=== PATIENT | female | born 1960 | race Caucasian/White ===

== ENCOUNTER 2017-02-03 03:18 | Emergency (ER) | payer BC ==
[2017-02-03 03:55] LABS: ABSOLUTE EOSINOPHILS # (AUTO) 0.1 10^3/uL (0.0-0.6); ABSOLUTE LYMPHOCYTES (AUTO) 1.6 10^3/uL (0.5-4.7); ABSOLUTE MONOCYTES (AUTO) 0.7 10^3/uL (0.1-1.4); ABSOLUTE NEUT (AUTO) 3.9 10^3/uL (1.7-8.2); BASOPHILS % (AUTO) 0.3 % (0-2); EOSINOPHILS % (AUTO) 2.2 % (0-6); HEMATOCRIT 43.1 % (36.0-47.0); HEMOGLOBIN 14.3 g/dL (12.0-15.5); HGB HCT DIFFERENCE -0.2; LYMPHOCYTES % (AUTO) 25.2 % (13-45); MEAN CORPUSCULAR HEMOGLOBIN 31.6 pg (27.0-33.4); MEAN CORPUSCULAR HGB CONC 33.2 g/dL (32.0-36.0); MEAN CORPUSCULAR VOLUME 95 fl (80-97); MONOCYTES % (AUTO) 10.6 % (3-13); RED BLOOD COUNT 4.54 10^6/uL (3.72-5.28); RED CELL DISTRIBUTION WIDTH 12.2 % (11.5-14.0); SEGMENTED NEUTROPHILS % (AUTO) 61.7 % (42-78); WHITE BLOOD COUNT 6.2 10^3/uL (4.0-10.5)
[2017-02-03 04:07] LABS: ALANINE AMINOTRANSFERASE 19 U/L (9-52); ALBUMIN 4.5 g/dL (3.5-5.0); ALKALINE PHOSPHATASE 80 U/L (38-126); ANION GAP 14 (5-19); ASPARTATE AMINO TRANSFERASE 16 U/L (14-36); BILIRUBIN,DIRECT 0.2 mg/dL (0.0-0.4); BILIRUBIN,TOTAL 0.5 mg/dL (0.2-1.3); BLOOD UREA NITROGEN 9 mg/dL (7-20); CALCIUM 9.6 mg/dL (8.4-10.2); CARBON DIOXIDE 25 mmol/L (22-30); CHLORIDE 103 mmol/L (98-107); CREATININE RESULT 0.57 mg/dL (0.52-1.25); GLUCOSE 113 mg/dL (75-110); TOTAL PROTEIN 7.7 g/dL (6.3-8.2)
[2017-02-03 04:57] LABS: APPEARANCE,URINE CLEAR; BILIRUBIN,URINE NEGATIVE (NEGATIVE); GLUCOSE, URINE NEGATIVE (NEGATIVE); KETONES,URINE NEGATIVE (NEGATIVE); LEUKOCYTE ESTERASE,URINE TRACE (NEGATIVE); NITRITE,URINE NEGATIVE (NEGATIVE); PROTEIN,URINE NEGATIVE (NEGATIVE); URINE SPECIFIC GRAVITY 1.019; UROBILINOGEN,URINE NEGATIVE mg/dL (<2.0)
[2017-02-03] MEDS ORDERED: NORMAL SALINE 1000 ML 1,000 ML IV ONE (08:10)
[2017-02-03] MEDS ORDERED: LIDOCAINE 2% VISCOUS SOLN 20 ML UDCUP PO ONE (08:10)
[2017-02-03] MEDS ORDERED: DIPHENHYDRAMINE HCL 50 MG/ML VIAL IV ONE (08:10)
[2017-02-03] MEDS ORDERED: MAG HYDROX/AL HYDROX/SIMETH SUSP 30 ML UDCUP PO ONE (08:10)
[2017-02-03 08:16] LABS: ADD ON TESTING BLD IN LAB ACKNOWLEDGE
[2017-02-03 08:35] LABS: LIPASE 60.1 U/L (23-300)
--- NOTE | 2017-02-03 10:45 | ER Document Report ---
ED GI/ - General Chief Complaint: Diarrhea Stated Complaint: DIARRHEA,ABDOMINAL PAIN Mode of Arrival: Ambulatory Information source: Patient Notes: Patient presents a one-week history of nausea with diarrhea. Patient states typically she's been having 6 diarrhea bowel movements a day. Patient denies any fever or blood in her stool. Patient does state that she takes methadone daily for chronic pain due to neuropathy. Patient states that she is prescribed methadone 5 mg 3 times a day but only takes a dose once a day. TRAVEL OUTSIDE OF THE [place] IN LAST 30 DAYS: No - HPI Patient complains to provider of: Abdominal pain, Diarrhea. No: Dysuria, Vaginal discharge, Vomiting Onset: Last week Timing/Duration: Persistent Quality of pain: Cramping Pain Level: 3 Location: Epigastric Vaginal bleeding (Compared to normal period): None Associated symptoms: Diarrhea, Nausea. denies: Blood in stool, Dizzy, Dysuria, Fever Exacerbated by: Denies Relieved by: Denies Similar symptoms previously: No Recently seen / treated by doctor: No - Related Data Allergies/Adverse Reactions: aspirin [Aspirin] Allergy (Intermediate, Verified 02/03/17 03:26) heart racing, head hurt,face turned red ondansetron HCl [From Zofran] Allergy (Intermediate, Verified 02/03/17 03:26) VOMITING Penicillins Allergy (Mild, Verified 02/03/17 03:26) rash adhesive [Adhesive] Adverse Reaction (Intermediate, Verified 02/03/17 03:26) swelling Past Medical History - General Information source: Patient - Social History Smoking Status: Former Smoker Frequency of alcohol use: None Drug Abuse: None Occupation: none Lives with: Spouse/Significant other Family History: Reviewed & Not Pertinent - Past Medical History Cardiac Medical History: Denies: Hx Coronary Artery Disease, Hx Heart Attack, Hx Hypertension Pulmonary Medical History: Denies: Hx Asthma, Hx Bronchitis, Hx COPD, Hx Pneumonia Neurological Medical History: Denies: Hx Cerebrovascular Accident, Hx Seizures Renal/ Medical History: Denies: Hx Peritoneal Dialysis Malignancy Medical History: Reports: Hx Breast Cancer - Treated with chemotherapy and radiation. GI Medical History: Reports: Hx Gastroesophageal Reflux Disease, Other - Gastroparesis Musculoskeltal Medical History: Reports Hx Arthritis - HANDS Past Surgical History: Reports: Hx Breast Surgery - left side lumpectomy, Hx Cholecystectomy, Hx Hysterectomy - PARTIAL, Hx Mastectomy - left, Hx Thyroid Surgery - 2009 - Immunizations Hx Diphtheria, Pertussis, Tetanus Vaccination: No Review of Systems - Review of Systems Constitutional: No symptoms reported. denies: Fever, Recent illness EENT: No symptoms reported Cardiovascular: No symptoms reported. denies: Chest pain Respiratory: No symptoms reported. denies: Cough, Short of breath Gastrointestinal: Abdominal pain, Diarrhea, Poor appetite, Poor fluid intake. denies: Vomiting, Black stools, Rectal bleeding Genitourinary: No symptoms reported. denies: Dysuria, Flank pain Female Genitourinary: No symptoms reported Musculoskeletal: No symptoms reported Skin: No symptoms reported Hematologic/Lymphatic: No symptoms reported Neurological/Psychological: No symptoms reported Physical Exam - Vital signs Vitals: Temp Pulse Resp BP Pulse Ox 97.9 F 98 16 124/73 98 02/03/17 03:26 02/03/17 03:26 02/03/17 03:26 02/03/17 03:26 02/03/17 03:26 - General General appearance: Appears well, Alert In distress: None - HEENT Head: Normocephalic, Atraumatic Eyes: Normal Nasal: Normal Mouth/Lips: Normal Mucous membranes: Normal Pharynx: Normal Neck: Normal - Respiratory Respiratory status: No respiratory distress Chest status: Nontender Breath sounds: Normal. No: Rales, Rhonchi, Stridor, Wheezing Chest palpation: Normal - Cardiovascular Rhythm: Regular Heart sounds: S1 appreciated, S2 appreciated Murmur: No - Abdominal Inspection: Normal Distension: No distension Bowel sounds: Normal Tenderness: Tender - Epigastric Organomegaly: No organomegaly - Back Back: Normal, Nontender. No: CVA tenderness - Extremities General upper extremity: Normal inspection, Normal strength General lower extremity: Normal inspection, Normal strength - Neurological Neuro grossly intact: Yes Cognition: Normal Jarratt Coma Scale Eye Opening: Spontaneous [place]att Coma Scale Verbal: Oriented Erika Coma Scale Motor: Obeys Commands Erika Coma Scale Total: 15 - Skin Skin Temperature: Warm Skin Moisture: Dry Skin Color: Normal Course - Re-evaluation Re-evalutation: 02/03/17 09:30 Patient reports improvement of pain symptoms after GI cocktail. 02/03/17 10:41 Discussed results with patient. Patient advised to take her usual medications at home as prescribed. Patient states she has lidocaine at home that she is supposed to take occasionally for upper abdominal tenderness. Patient advised to return with stool specimen when she has diarrhea again so that we can perform outpatient testing. Discussed worsening signs or symptoms that patient should [facility]. Patient encouraged to follow-up with her primary doctor tomorrow as well as a vocational psychologist. Patient states she has previously seen Dr. Celis, but states that he told her that he couldn't do anything else for her. Patient additionally reports that she has seen Dr. Mancilla the past. - Vital Signs Vital signs: Temp Pulse Resp BP Pulse Ox 97.9 F 76 16 125/72 97 02/03/17 10:58 02/03/17 10:58 02/03/17 10:58 02/03/17 10:58 02/03/17 10:58 - Laboratory Result Diagrams: 02/03/17 03:45 02/03/17 03:45 Laboratory results interpreted by me: 02/03/17 02/03/17 03:45 04:35 Glucose 113 H Ur Leukocyte Esterase TRACE H Urine Ascorbic Acid 40 H 02/03/17 10:43 Labs- Entire Visit 02/03/17 02/03/17 02/03/17 03:45 03:45 03:45 WBC 6.2 RBC 4.54 Hgb 14.3 Hct 43.1 MCV 95 MCH 31.6 MCHC 33.2 RDW 12.2 Plt Count 216 Seg Neutrophils % 61.7 Lymphocytes % 25.2 Monocytes % 10.6 Eosinophils % 2.2 Basophils % 0.3 Absolute Neutrophils 3.9 Absolute Lymphocytes 1.6 Absolute Monocytes 0.7 Absolute Eosinophils 0.1 Absolute Basophils 0.0 Sodium 142.0 Potassium 4.0 Chloride 103 Carbon Dioxide 25 Anion Gap 14 BUN 9 Creatinine 0.57 Est GFR ( Amer) > 60 Est GFR (Non-Af Amer) > 60 Glucose 113 H Calcium 9.6 Total Bilirubin 0.5 Direct Bilirubin 0.2 Indirect Bilirubin Not Reportable Neonat Total Bilirubin Not Reportable AST 16 ALT 19 Alkaline Phosphatase 80 Total Protein 7.7 Albumin 4.5 Lipase 60.1 Urine Color Urine Appearance Urine pH Ur Specific [place] Urine Protein Urine Glucose (UA) Urine Ketones Urine Blood Urine Nitrite Urine Bilirubin Urine Urobilinogen Ur Leukocyte Esterase Urine WBC (Auto) Urine RBC (Auto) U Hyaline Cast (Auto) Squamous Epi Cells Auto Urine Mucus (Auto) Urine Ascorbic Acid 02/03/17 04:35 WBC RBC Hgb Hct MCV MCH MCHC RDW Plt Count Seg Neutrophils % Lymphocytes % Monocytes % Eosinophils % Basophils % Absolute Neutrophils Absolute Lymphocytes Absolute Monocytes Absolute Eosinophils Absolute Basophils Sodium Potassium Chloride Carbon Dioxide Anion Gap BUN Creatinine Est GFR ( Amer) Est GFR (Non-Af Amer) Glucose Calcium Total Bilirubin Direct Bilirubin Indirect Bilirubin Neonat Total Bilirubin AST ALT Alkaline Phosphatase Total Protein Albumin Lipase Urine Color YELLOW Urine Appearance CLEAR Urine pH 5.0 Ur Specific [place] 1.019 Urine Protein NEGATIVE Urine Glucose (UA) NEGATIVE Urine Ketones NEGATIVE Urine Blood NEGATIVE Urine Nitrite NEGATIVE Urine Bilirubin NEGATIVE Urine Urobilinogen NEGATIVE Ur Leukocyte Esterase TRACE H Urine WBC (Auto) 1 Urine RBC (Auto) 1 U Hyaline Cast (Auto) 1 Squamous Epi Cells Auto <1 Urine Mucus (Auto) RARE Urine Ascorbic Acid 40 H 02/03/17 11:51 Discharge - Discharge Clinical Impression: Nausea Diarrhea Qualifiers: Diarrhea type: unspecified type Qualified Code(s): R19.7 - Diarrhea, unspecified Disposition: HOME, SELF-CARE Instructions: Nausea or Vomiting, Nonspecific ([facility]), Diarrhea, Nonspecific ([facility] ), Reflux Disease (GERD) ([facility]) Additional Instructions: Return immediately for any new or worsening symptoms Followup with your primary care provider, call tomorrow to make a followup appointment Take her nausea medication that you have at home as prescribed May take your lidocaine that you have at home as prescribed Obtain stool specimen and bring to lab for further testing. We will call if you need any different treatment Prescriptions: Sucralfate [Carafate 1 gm Tablet] 1 gm PO ACHS #40 tablet Forms: Follow-Up Laboratory Testing Referrals: ABDIFATAH BANGURA MD [Primary Care Provider] - Follow up tomorrow GREG CLEMENS MD [EMERITUS] - Follow up tomorrow
[2017-02-03 11:08] VITALS: BP 125/72
== END 2017-02-03 11:09 | disposition home or self-care (01) ==
LOC: ER 03:18
DX: R11.0 Nausea (principal); R19.7 Diarrhea, unspecified; G89.29 Other chronic pain; Z79.899 Other long term (current) drug therapy; Z87.891 Personal history of nicotine dependence
CPT/HCPCS: 99284; 96361; 96374; 36415; 83690; 85025; 80053; 81001; J1200; J3490; J7030

== ENCOUNTER → 2017-02-20 | Outpatient (CLI) | payer BC | LOC: RAD 11:47 | PROVIDERS: ATTEND Obstetrics & Gynecology | DX: Z85.3 Personal history of malignant neoplasm of breast (principal) | CPT/HCPCS: G0279; G0204; 77062; 77066 ==

== ENCOUNTER → 2017-06-27 | Outpatient (CLI) | payer BC ==
--- NOTE | 2017-06-27 16:47 | RADIOLOGY REPORT (SQ) ---
EXAM DESCRIPTION: CHEST PA/LATERAL COMPLETED DATE/TIME: 06/27/2017 3:35 pm REASON FOR STUDY: S/P BREAST CANCER; LEFT SIDE CHEST PAIN COMPARISON: Two-view chest 02/27/2016 CT angio chest 10/07/2014 EXAM PARAMETERS: NUMBER OF VIEWS: two views TECHNIQUE: Digital Frontal and Lateral radiographic views of the chest acquired. RADIATION DOSE: NA LIMITATIONS: none FINDINGS: LUNGS AND PLEURA: No opacities, masses or pneumothorax. No pleural effusion. MEDIASTINUM AND HILAR STRUCTURES: No masses or contour abnormalities. HEART AND VASCULAR STRUCTURES: Heart normal size. No evidence for failure. BONES: Bones are osteoporotic. No fracture. HARDWARE: Surgical clips left axilla. Clips right upper quadrant post cholecystectomy OTHER: No other significant finding. IMPRESSION: Postsurgical changes left axilla. No left rib fractures or lytic or blastic lesions ove r the left bony chest. TECHNICAL DOCUMENTATION: JOB ID: [id number] [employer] All Rights Reserved
--- NOTE | 2017-06-27 16:49 | RADIOLOGY REPORT (SQ) ---
EXAM DESCRIPTION: RIBS LEFT W/O PA CHEST COMPLETED DATE/TIME: 06/27/2017 3:35 pm REASON FOR STUDY: S/P BREAST CANCER; LEFT SIDE CHEST PAIN R07.9 CHEST PAIN, UNSPECIFIED COMPARISON: Two-view chest same date, CT chest 03/16/2016 NUMBER OF VIEWS: Left rib detail four views TECHNIQUE: Images acquired of the left ribs in the area of focal concern. LIMITATIONS: None. FINDINGS: RIBS: No acute displaced fracture. No lytic or blastic lesions. LUNGS: Left lung well inflated and clear. No left pleural effusion or pneumothorax. OTHER: Post surgery in the left upper outer quadrant breast without surgical clips present in the far upper outer quadrant and left axilla. IMPRESSION: NO ACUTE DISPLACED RIB FRACTURE. No left rib lytic or blastic lesions identified on plain film. COMMENT: SITE OF TRAUMA/COMPLAINT MARKED/STAMP COMPLETED: Yes TECHNICAL DOCUMENTATION: JOB ID: [id number] [employer]- All Rights Reserved
== END ==
LOC: OD 14:42
PROVIDERS: ATTEND Obstetrics & Gynecology
DX: R07.9 Chest pain, unspecified (principal); Z85.3 Personal history of malignant neoplasm of breast
CPT/HCPCS: 71020

== ENCOUNTER 2019-04-21 15:32 | Day surgery (SDC) | payer BC ==
[2019-04-21] MEDS ORDERED: DIPHENHYDRAMINE HCL 50 MG/ML VIAL ONE (16:08)
[2019-04-21] MEDS: PROMETHAZINE HCL INJ 25 MG/1 ML VIAL ONE ×2 (16:08→18:08)
[2019-04-21] MEDS ORDERED: ONDANSETRON HCL INJ/PF 4 MG/2 ML SDV ONE (16:08)
[2019-04-21] MEDS ORDERED: FENTANYL CITRATE INJ/PF 100 MCG/2 ML AMPUL ONE (16:08)
[2019-04-21] MEDS ORDERED: NALOXONE HCL INJ/PF 0.4 MG/1 ML SDV ONE (16:09)
[2019-04-21] MEDS ORDERED: GLUCAGON,HUMAN RECOMB 1 MG INJ ONE (16:09)
[2019-04-21] MEDS ORDERED: FLUMAZENIL INJ 0.5 MG/5 ML VIAL ONE (16:09)
[2019-04-21] MEDS ORDERED: EPINEPHRINE INJ 1 MG/10 ML DISP.SYRIN ONE (16:09)
[2019-04-21] MEDS ORDERED: ONABOTULINUMTOXINA INJ/PF 100 UNIT SDV IJ ONE (18:00)
[2019-04-21] MEDS: MIDAZOLAM 2 MG/2 ML INJ ONE ×2 (18:13→18:30)
--- NOTE | 2019-04-21 18:44 | Operative Report ---
Operative Report DATE OF SURGERY: 04/21/19 Operative Report: Pre-op diagnosis: History of dysphagia and tight GE junction from fundoplication Post-op diagnosis: Mild GE junction stenosis Surgery: Esophagogastroduodenoscopy with Botox injection and balloon dilation Medications: Versed 3mg Fentanyl 100mcg IV push Tissue removed: None Procedure: After informed consent obtained from patient, the throat was sprayed with Hurricane and conscious sedation was achieved. The upper endoscope was inserted into the esophagus under direct vision and advanced into the stomach. The duodenum was entered and examined to the second part. Endoscope was then slowly pulled out of the patient as the mucosa was examined into details. Patient tolerated procedure well. Findings Esophagus: There was mild stenosis at the GE junction with evidence for previous fundoplication. There was more significant tightness during the recent EGD. The GE junction was injected with Botox and dilated with 20 mm balloon. Antrum: Normal Body: Normal Fundus: Normal Duodenum first part: Normal Duodenum second part: Normal Plan: Follow-up in the office OPERATION: .
[2019-04-21 19:53] VITALS: BP 118/80
== END 2019-04-21 19:57 | disposition home or self-care (01) ==
LOC: END 15:32
PROVIDERS: ATTEND Internal Medicine Gastroenterology
PROC: 0D748ZZ Dilation of Esophagogastric Junction, Via Natural or Artificial Opening Endoscopic (ICD-10-PCS; principal; 2019-04-21 16:00)
PROC: 3E0G8GC Introduction of Other Therapeutic Substance into Upper GI, Via Natural or Artificial Opening Endoscopic (ICD-10-PCS; 2019-04-21 16:00)
DX: K22.2 Esophageal obstruction (principal); R13.10 Dysphagia, unspecified
CPT/HCPCS: 43249; 43236; J2250; J3010; J2550; J0585; J0171; J1200; J1610; J2310; J2405; J3490

== ENCOUNTER 2020-08-16 23:26 | Emergency (ER) | payer BC ==
[2020-08-16] MEDS ORDERED: NORMAL SALINE 1000 ML 1,000 ML IV ONE (23:55)
[2020-08-16] MEDS ORDERED: METOCLOPRAMIDE HCL INJ/PF 10 MG/2 ML SDV IV ONE (23:55)
--- NOTE | 2020-08-16 23:57 | ER Document Report ---
ED Medical Screen (RME) - General Chief Complaint: Abdominal Pain Stated Complaint: ABDOMINAL PAIN Time Seen by Provider: 08/16/20 23:54 Primary Care Provider: NAE ROSAS MD [Primary Care Provider] - Follow up as needed Mode of Arrival: Ambulatory Information source: Patient Notes: 60-year-old female with a right lower quadrant pain and distention ear lier today. Vomiting present. History of nausea in the past. Takes Phenergan but today nausea and pain far worse than any time before. No fevers or chills. General: Uncomfortable appearance Abdominal: Right lower quadrant tenderness to palpation Respiratory: No acute distress Neurology: No focal deficits I have greeted and performed a rapid initial assessment of this patient. A comprehensive ED assessment and evaluation of the patient, analysis of test results and completion of the medical decision making process will be conducted by additional ED providers. TRAVEL OUTSIDE OF THE [place] IN LAST 30 DAYS: No - Related Data Allergies/Adverse Reactions: aspirin [Aspirin] Allergy (Intermediate, Verified 04/21/19 16:21) heart racing, head hurt,face turned red ondansetron HCl [From Zofran] Allergy (Intermediate, Verified 04/21/19 16:21) VOMITING Penicillins Allergy (Mild, Verified 04/21/19 16:21) rash adhesive [Adhesive] Adverse Reaction (Intermediate, Verified 04/21/19 16:21) swelling Past Medical History - Past Medical History Cardiac Medical History: Denies: Hx Coronary Artery Disease, Hx Heart Attack, Hx Hypertension Pulmonary Medical History: Denies: Hx Asthma, Hx Bronchitis, Hx COPD, Hx Pneumonia Neurological Medical History: Reports: Hx Seizures - NONE FOR ABOUT 3 YEARS. Denies: Hx Cerebrovascular Accident Renal/ Medical History: Denies: Hx Peritoneal Dialysis Malignancy Medical History: Reports: Hx Breast Cancer - Treated with chemotherapy and radiation. GI Medical History: Reports: Hx Gastroesophageal Reflux Disease Musculoskeltal Medical History: Reports Hx Arthritis - HANDS Past Surgical History: Reports: Hx Breast Surgery - left side lumpectomy, Hx Cholecystectomy, Hx Mastectomy - left, Hx Thyroid Surgery - 2009. Denies: Hx Hysterectomy - Immunizations Hx Diphtheria, Pertussis, Tetanus Vaccination: No Physical Exam - Vital signs Vitals: Temp Pulse Resp BP Pulse Ox 97.5 F 81 18 147/74 H 98 08/16/20 23:38 08/16/20 23:38 08/16/20 23:38 08/16/20 23:38 08/16/20 23:38 Course - Vital Signs Vital signs: Temp Pulse Resp BP Pulse Ox 97.5 F 81 18 147/74 H 98 08/16/20 23:38 08/16/20 23:38 08/16/20 23:38 08/16/20 23:38 08/16/20 23:38 Doctor's Discharge - Discharge Referrals: NAE ROSAS MD [Primary Care Provider] - Follow up as needed
[2020-08-17 01:26] LABS: ABSOLUTE LYMPHOCYTES (AUTO) 0.8 10^3/uL (0.5-4.7); ABSOLUTE MONOCYTES (AUTO) 0.8 10^3/uL (0.1-1.4); ABSOLUTE NEUT (AUTO) 10.9 10^3/uL (1.7-8.2); BASOPHILS % (AUTO) 0.3 % (0-2); EOSINOPHILS % (AUTO) 0.1 % (0-6); HEMATOCRIT 38.5 % (36.0-47.0); LYMPHOCYTES % (AUTO) 6.3 % (13-45); MEAN CORPUSCULAR HEMOGLOBIN 32.2 pg (27.0-33.4); MEAN CORPUSCULAR HGB CONC 33.7 g/dL (32.0-36.0); MEAN CORPUSCULAR VOLUME 95 fl (80-97); MONOCYTES % (AUTO) 6.2 % (3-13); PLATELET COUNT 204 10^3/uL (150-450); RED BLOOD COUNT 4.04 10^6/uL (3.72-5.28); RED CELL DISTRIBUTION WIDTH 11.9 % (11.5-14.0); SEGMENTED NEUTROPHILS % (AUTO) 87.1 % (42-78); TOTAL CELLS COUNTED % (AUTO) 100 %; WHITE BLOOD COUNT 12.5 10^3/uL (4.0-10.5)
[2020-08-17 01:45] LABS: ALBUMIN 4.7 g/dL (3.5-5.0); ALKALINE PHOSPHATASE 76 U/L (38-126); ANION GAP 10 (5-19); ASPARTATE AMINO TRANSFERASE 28 U/L (14-36); BILIRUBIN,DIRECT 0.2 mg/dL (0.0-0.4); BILIRUBIN,TOTAL 0.6 mg/dL (0.2-1.3); BLOOD UREA NITROGEN 11 mg/dL (7-20); CALCIUM 9.4 mg/dL (8.4-10.2); CARBON DIOXIDE 28 mmol/L (22-30); CHLORIDE 99 mmol/L (98-107); GLUCOSE 114 mg/dL (75-110); POTASSIUM 3.7 mmol/L (3.6-5.0); TOTAL PROTEIN 7.5 g/dL (6.3-8.2)
[2020-08-17 02:47] LABS: APPEARANCE,URINE SLIGHTLY-CLOUDY; BILIRUBIN,URINE NEGATIVE (NEGATIVE); CALCIUM OXALATE CRYSTALS,URINE MANY /HPF; GLUCOSE, URINE NEGATIVE (NEGATIVE); KETONES,URINE 20 mg/dL (NEGATIVE); PROTEIN,URINE NEGATIVE (NEGATIVE)
[2020-08-17 02:53] LABS: COLOR,URINE DARK YELLOW
--- NOTE | 2020-08-17 03:00 | RADIOLOGY REPORT (SQ) ---
CT ABDOMEN AND PELVIS WITH INTRAVENOUS CONTRAST: 08/17/2020 1:56 AM CDT HISTORY: 60-year old with right lower quadrant abdominal pain, nausea. COMPARISON: None available TECHNIQUE: Axial contiguous images were obtained from the lung bases to the proximal femurs with intravenous intravenous contrast administered. Sagittal and coronal reconstructions were also obtained and reviewed. This exam was performed according to our departmental dose-optimization program, which includes automated exposure control, adjustment of the mA and/or KV according to the patient's size and/or use of iterative reconstruction technique. FINDINGS: No focal consolidative airspace opacities are seen. No discrete pleural effusions are seen. The visualized hepatic parenchyma is unremarkable. No focal enhancing lesion is seen. The main portal vein appears to be patent. The gallbladder is surgically absent. There is mild prominence of the intra and extrahepatic ducts, likely due to postcholecystectomy changes. The spleen is normal in size. The pancreas is unremarkable. The bilateral adrenal glands appear unremarkable. Both kidneys demonstrate no evidence of hydronephrosis. No renal or ureteral calculi are seen. The urinary bladder is mildly distended, and appears grossly unremarkable. There are surgical clips at the right inguinal region, likely from prior inguinal hernia repair. The stomach is minimally distended. The small bowel loops appear unremarkable. There is mild distention of much of the colon. There is diffuse mucosal thickening and prominence of much of the colon, predominantly involving the descending and rectosigmoid colon. The appendix appears unremarkable. No gross obstructive process is readily apparent. There is no evidence of pneumoperitoneum or free fluid. The aorta and IVC appear normal in size. There is some minimal atherosclerotic calcification of aorta and into the iliac arteries. No significantly enlarged lymph nodes are seen in the abdomen or pelvis. Review of the bone show no evidence of any suspicious lytic or blastic lesions. IMPRESSION: There is mild distention of much of the colon with mucosal thickening involving the descending and rectosigmoid colon. This is likely due to underlying colitis. This is accompanied with a colonic ileus.
[2020-08-17] MEDS ORDERED: METOCLOPRAMIDE HCL INJ/PF 10 MG/2 ML SDV ONE (07:25)
[2020-08-17] MEDS ORDERED: NORMAL SALINE 1000 ML 1,000 ML IV ONE (10:10)
--- NOTE | 2020-08-17 11:30 | ER Document Report ---
ED General - General Chief Complaint: Abdominal Pain Stated Complaint: ABDOMINAL PAIN Time Seen by Provider: 08/16/20 23:54 Primary Care Provider: NAE ROSAS MD [ACTIVE STAFF] - Follow up as needed Mode of Arrival: Ambulatory Information source: Patient TRAVEL OUTSIDE OF THE [place] IN LAST 30 DAYS: No - HPI Notes: Patient complains of bilateral lower quadrant abdominal pain. She states it was intermittent. Nothing made it better or worse. Did radiate from one side lower quadrant to the other. It was sharp. She states she has a history of a Cherelle fundoplasty approximately 14 years ago. She states ever since that time she has had some gastroparesis. She states that she is under chronic management for this by her family physician who treats her with antiemetics and narcotic pain medications. She states last night when she developed her usual symptoms she took her medicine but the pain became worse and was lower than it is usually with her gastroparesis. She has had some diarrhea and vomiting. She states on my initial interview that she is feeling better. She denies any recent antibiotics. - Related Data Allergies/Adverse Reactions: aspirin [Aspirin] Allergy (Intermediate, Verified 08/17/20 01:26) heart racing, head hurt,face turned red ondansetron HCl [From Zofran] Allergy (Intermediate, Verified 08/17/20 01:26) VOMITING Penicillins Allergy (Mild, Verified 08/17/20 01:26) rash adhesive [Adhesive] Adverse Reaction (Intermediate, Verified 08/17/20 01:26) swelling Past Medical History - General Information source: Patient - Social History Smoking Status: Former Smoker Frequency of alcohol use: Social Drug Abuse: None Family History: Reviewed & Not Pertinent - Past Medical History Cardiac Medical History: Denies: Hx Coronary Artery Disease, Hx Heart Attack, Hx Hypertension Pulmonary Medical History: Denies: Hx Asthma, Hx Bronchitis, Hx COPD, Hx Pneumonia Neurological Medical History: Reports: Hx Seizures - NONE FOR ABOUT 3 YEARS. Denies: Hx Cerebrovascular Accident Renal/ Medical History: Denies: Hx Peritoneal Dialysis Malignancy Medical History: Reports: Hx Breast Cancer - Treated with chemotherapy and radiation. GI Medical History: Reports: Hx Gastroesophageal Reflux Disease Musculoskeletal Medical History: Reports Hx Arthritis - HANDS Past Surgical History: Reports: Hx Breast Surgery - left side lumpectomy, Hx Cholecystectomy, Hx Mastectomy - left, Hx Thyroid Surgery - 2009. Denies: Hx Hysterectomy - Immunizations Hx Diphtheria, Pertussis, Tetanus Vaccination: No Review of Systems - Review of Systems Constitutional: denies: Chills, Fever Cardiovascular: denies: Chest pain, Palpitations Respiratory: denies: Cough, Short of breath -: Yes All other systems reviewed and negative Physical Exam - Vital signs Vitals: Temp Pulse Resp BP Pulse Ox 97.5 F 81 18 147/74 H 98 08/16/20 23:38 08/16/20 23:38 08/16/20 23:38 08/16/20 23:38 08/16/20 23:38 Interpretation: Normal - General General appearance: Appears well, Alert - HEENT Head: Normocephalic, Atraumatic Eyes: Normal Pupils: PERRL - Respiratory Respiratory status: No respiratory distress Chest status: Nontender Breath sounds: Normal Chest palpation: Normal - Cardiovascular Rhythm: Regular Heart sounds: Normal auscultation Murmur: No - Abdominal Inspection: Normal Distension: No distension Bowel sounds: Normal Tenderness: Tender - Mild lower quadrant tenderness to palpation. No rebound or guarding. Organomegaly: No organomegaly - Back Back: Normal, Nontender - Extremities General upper extremity: Normal inspection, Nontender, Normal color, Normal ROM, Normal temperature General lower extremity: Normal inspection, Nontender, Normal color, Normal ROM, Normal temperature, Normal weight bearing. No: Elizabeth's sign - Neurological Neuro grossly intact: Yes Cognition: Normal Orientation: AAOx4 Erika Coma Scale Eye Opening: Spontaneous [place] Coma Scale Verbal: Oriented Erika Coma Scale Motor: Obeys Commands [place] Coma Scale Total: 15 Speech: Normal Motor strength normal: LUE, RUE, LLE, RLE Sensory: Normal - Psychological Associated symptoms: Normal affect, Normal mood - Skin Skin Temperature: Warm Skin Moisture: Dry Skin Color: Normal Course - Re-evaluation Re-evalutation: 08/17/20 11:29 Patient presents with diarrhea. She has a minimally elevated white blood cell count as well as diffuse colitis by CT scan. She has not recently been on any type of antibiotics. She has not recently been in the hospital or had any type of procedures done. Based on risk factors and the fact the patient does not appear toxic or have a fever nor did she have a significantly elevated white blood cell count I do not believe that this is C. difficile. However I have instructed the patient that she needs to take a stool sample to her primary care physician for a C. difficile infection if the diarrhea continues. I tried deb ral times to call her primary doctor, Dr. Bangura, however it continues to be busy and I am unable even to leave a voicemail. 08/17/20 11:35 - Vital Signs Vital signs: Temp Pulse Resp BP Pulse Ox 99.1 F 99 19 99/58 L 97 08/17/20 06:13 08/17/20 06:13 08/17/20 11:03 08/17/20 11:03 08/17/20 11:03 - Laboratory Result Diagrams: 08/17/20 01:09 08/17/20 01:09 Laboratory results interpreted by me: 08/17/20 08/17/20 08/17/20 01:09 01:09 01:09 WBC 12.5 H Lymph % (Auto) 6.3 L Absolute Neuts (auto) 10.9 H Seg Neutrophils % 87.1 H Creatinine 0.47 L Glucose 114 H Urine Ketones 20 H Urine Urobilinogen 2.0 H Leukocyte Esterase Rfl TRACE H - Diagnostic Test Radiology reviewed: Image reviewed, Reports reviewed Discharge - Discharge Clinical Impression: Abdominal pain Qualifiers: Abdominal location: lower abdomen, unspecified Qualified Code(s): R10.30 - Lower abdominal pain, unspecified Diarrhea Qualifiers: Diarrhea type: unspecified type Qualified Code(s): R19.7 - Diarrhea, unsp ecified Condition: Stable Disposition: HOME, SELF-CARE Instructions: Abdominal Pain ([facility]), Diarrhea, Nonspecific ([facility]) Additional Instructions: Please take a stool sample to your primary physician as soon as possible and discuss C. difficile testing Prescriptions: Ciprofloxacin HCl [Cipro 500 mg Tablet] 500 mg PO BID #10 tablet Metronidazole [Flagyl 500 mg Tablet] 500 mg PO BID 5 Days #10 tablet Forms: Return to Work Referrals: ABDIFATAH BANGURA MD [Primary Care Provider] - Follow up in 3-5 days
[2020-08-17 11:45] VITALS: BP 107/58
[2020-08-17 15:54] LABS: C DIFFICILE GDH NEGATIVE (NEGATIVE)
== END 2020-08-17 12:18 | disposition home or self-care (01) ==
LOC: ER 23:26
DX: K52.9 Noninfective gastroenteritis and colitis, unspecified (principal); K31.84 Gastroparesis; K56.7 Ileus, unspecified; R10.31 Right lower quadrant pain; R10.32 Left lower quadrant pain; R11.10 Vomiting, unspecified; Z98.890 Other specified postprocedural states; Z79.899 Other long term (current) drug therapy; Z79.891 Long term (current) use of opiate analgesic; Z85.3 Personal history of malignant neoplasm of breast; Z92.3 Personal history of irradiation; Z92.21 Personal history of antineoplastic chemotherapy; Z87.891 Personal history of nicotine dependence; Z90.49 Acquired absence of other specified parts of digestive tract; Z88.8 Allergy status to other drugs, medicaments and biological substances; Z88.0 Allergy status to penicillin
CPT/HCPCS: 99285; 96361; 96374; 36415; 85025; 80053; 81001; 87324; 87449; 74177; J2765; J7030

== ENCOUNTER → 2020-08-29 | Outpatient (CLI) | payer BC ==
--- NOTE | 2020-08-29 17:20 | EKG REPORT ---
SEVERITY:- ABNORMAL ECG - SINUS RHYTHM ABNRM R PROG, CONSIDER ASMI OR LEAD PLACEMENT : Confirmed by: Smith Iqbal MD 29-Aug-2020 17:19:22
== END ==
LOC: OD 14:46
PROVIDERS: ATTEND Physician Assistant
DX: G89.4 Chronic pain syndrome (principal); Z51.81 Encounter for therapeutic drug level monitoring; Z79.891 Long term (current) use of opiate analgesic; Z79.899 Other long term (current) drug therapy
CPT/HCPCS: 36415; 80358; 93005; 93010